=== PATIENT | female | born 1975 | race American Indian/Alaskan Native ===

== ENCOUNTER 2017-10-03 22:20 | Emergency (ER) | payer OTHER ==
[~2017-10-03] VITALS: Ht 167.6 cm; Wt 59.0 kg
[2017-10-03 22:31] VITALS: BP 114/92
== END 2017-10-03 23:38 | disposition left against medical advice (07) ==
LOC: ER 22:48
DX: R51 Headache (principal); Z53.21 Procedure and treatment not carried out due to patient leaving prior to being seen by health care provider